=== PATIENT | male | born 1930 | race Caucasian/White ===

== ENCOUNTER → 2016-02-29 | Outpatient (CLI) | payer MEDICARE ==
[~2016-02-29] MED LIST: AC500T GT; AGM500T PO; CETI10CA PO; MELO15TA14 PO; OXB5TCR PO; SIMV40TA2 PO; [UNRECOGNIZED DRUG - CODE] PO
[2016-02-29 10:47] VITALS: BP 155/71
--- NOTE | 2016-02-29 10:47 | Urgent Care T Sheet Gen (E) ---
Intake General Temperature (Fahrenheit): 98.6 Pulse: 84 Blood Pressure Systolic: 155 Blood Pressure Diastolic: 71 Respirations: 20 SPO2: 96 Description of Symptoms Patient presents with illness x 10 days. States his nose is congestion as well as his chest. Cough is productive and he feels short of breath. states he is very lethargic. Patient states he can usually get better on his own however this is a more severe infection than his usual colds. No fever. Been taking extra strength Robitussin which helps. History of Present Illness Allergies: Coded Allergies: No Known Drug Allergies (Unverified , 12/19/12) Home Meds Reported Medications Cetirizine HCl (Zyrtec)10 Mg [id number] Mg PO daily 12/19/12 Potassium Citrate/Citric Acid (Pot Citrate-Citric Acid Packet)1 Each Packet1 Each PO daily 12/19/12 Simvastatin 40 Mg Wbjwcl66 Mg PO daily 12/19/12 Meloxicam (Mobic)15 Mg Whwgsf62 Mg PO daily 12/19/12 Acetaminophen (Tylenol Tab)500 Mg Oth755 Mg GT prn 12/19/12 Respiratory Constitutional Symptoms: No Fever, Malaise EENTM: Nose Congestion Throat pain Respiratory: Cough Short of breathNo Wheezing Cardiovascular: No symptoms reported Gastrointestinal/Abdominal: No symptoms reported Genitourinary: No symptoms reported All Other Systems Reviewed Remaining Systems: All other systems reviewed with negative findings Past Aswybfc-Txedmp-Yxozew Hx Surgeries/Hospitalizations Hospitalization/Surgery Hx: cyst removal, hand surgery, knee surgery, right and left carotid stripped, prostate cancer, radiation tx, Respiratory Respiratory History: Sleep Apnea Cardiovascular Cardiovascular History: None Reproductive System Sexually Transmitted Diseases: No Gastrointestinal GI/Endocrine History: None HEENT Impaired Vision: Glasses Hearing Impaired: Bilateral Hearing Aids Psychosocial Behavior Disorders: None Physical Exam Physical Exam General Appearance: WD/WN No apparent distress Eyes, Ears, Nose, Throat Ex: TMs normal Pharynx normal Other (nasal congestion with purulent drainage.) Neck Exam: SuppleNo Lymphadenopathy Respiratory Exam: RhonchiNo Wheezes Cardiovascular Exam: Regular rate, rhythm Departure Urgent Care Impression Impression: Primary Impression: Bronchitis Departure Disposition: HOME OR SELF-CARE Condition: Stable Referrals: DHARMESH BHATTI MD (PCP) Additional Instructions: I have started the patient on Augmentin BID x 10 days for treatment. With his cardiac history, I opted against treating with prednisone. While I did hear rhonchi, I didn't hear any wheezes. Continue with Robitussin as directed. This will compliment the antibiotic Rest. Fluids Return as needed Patient understands DC instructions. All questions were answered. Scripts Amoxicillin/Clavulanate Potassium (Augmentin 500mg/125mg)1 Each Tablet1 Each PO BID Infection #20 TAB Ref 0 Prov:MAIKOL VIVEROS 02/29/16 End of report . MAIKOL VIVEROS Feb 29, 2016 10:47
== END ==
LOC: MHUC 10:26
PROVIDERS: ATTEND Physician Assistant
DX: J40 Bronchitis, not specified as acute or chronic (principal)
CPT/HCPCS: 99213

== ENCOUNTER → 2016-07-07 | Outpatient (CLI) | payer MEDICARE | LOC: RAD 09:20 | PROVIDERS: ATTEND Internal Medicine Cardiovascular Disease | DX: I35.0 Nonrheumatic aortic (valve) stenosis (principal); I10 Essential (primary) hypertension | CPT/HCPCS: 93306 ==